=== PATIENT | female | born 1935 | race Caucasian/White ===

== ENCOUNTER 2022-03-10 10:14 | Emergency (ER) | payer MEDICARE, BC ==
[2022-03-10 11:13] LABS: ANION GAP 14.5 mEq/L (7-13); CHLORIDE,CL 99 mmol/L (98-107); SODIUM,NA 138 mmol/L (136-145)
[2022-03-10 11:17] LABS: ESTIMATED GFR 43 mL/min (>=60)
[2022-03-10 11:34] VITALS: BP 134/60; PULSE 76
[2022-03-10] MEDS: Sodium Chloride 0.9% 1,000 ML IV ONE (12:46)
[2022-03-10] MEDS: cefTRIAXone 2 GM in Sodium Chloride 0.9% 100 ML IV ONE (13:33)
== END 2022-03-10 14:39 | disposition home or self-care (01) ==
LOC: DL.ED 10:14
DX: N30.01 Acute cystitis with hematuria (principal); Z79.01 Long term (current) use of anticoagulants; Z79.899 Other long term (current) drug therapy
CPT/HCPCS: 36415; 80053; 81001; 83605; 84484; 85025; 85610; 87086; 87088; 87186; 93005; 96361; 96365; 99284; J0696; J7030

== ENCOUNTER 2022-03-11 08:50 | Inpatient (IN) | payer MEDICARE, BC ==
[2022-03-11] MEDS ORDERED: Sodium Chloride 0.9% 10 ML Syringe FLUSH PRN (09:25)
[2022-03-11] MEDS ORDERED: Sodium Chloride 0.9% 1,000 ML IV ONE (09:28)
[2022-03-11] MEDS ORDERED: Ondansetron 4 MG/2 ML SDV IV ONE (09:28)
[2022-03-11] MEDS ORDERED: cefTRIAXone 2 GM in Sodium Chloride 0.9% 100 ML IV ONE (09:28)
[2022-03-11] MEDS ORDERED: Fluconazole/Normal Saline 200 MG in Premix Bag 1 BAG IV ONE (09:29)
[2022-03-11] MEDS ORDERED: Potassium Chloride 20 MEQ in Premix Bag 1 BAG IV ONE (10:33)
[2022-03-11] MEDS ORDERED: Lidocaine 1% 10 ML MDV ONE (10:35)
[2022-03-11] MEDS ORDERED: Magnesium Sulfate/Water 2 GM in Premix Bag 1 BAG IV ONE ×2 (10:35→14:00)
[2022-03-11] MEDS ORDERED: oxyCODONE 5 MG Tab PO PRN (11:55)
[2022-03-11] MEDS ORDERED: Morphine 2 MG/ML SYRINGE IVPUSH PRN (11:55)
[2022-03-11] MEDS ORDERED: Acetaminophen 325 MG Tab PO PRN (11:55)
[2022-03-11] MEDS ORDERED: Ondansetron 4 MG/2 ML SDV IVPUSH PRN (11:55)
[2022-03-11] MEDS ORDERED: hydrALAZINE 20 MG/ML SDV IVPUSH PRN (12:08)
[2022-03-11] MEDS ORDERED: LORazepam 2 MG/ML SDV IVPUSH PRN (12:10)
[2022-03-11] MEDS ORDERED: Fluconazole 100 MG Tab PO SCH (12:15)
[2022-03-11 13:14] LABS: CORONAVIRUS COVID-19 NAA NEGATIVE (NEGATIVE); RESPIRATORY SYNCYTIAL VIR NAA NEGATIVE (NEGATIVE)
[2022-03-11] MEDS ORDERED: Heparin Sodium 5,000 Units/ML Vial SUBCUT SCH (14:00)
[2022-03-11] MEDS: NS with KCl 40mEq 1,000 ML IV SCH (14:22)
[2022-03-11] MEDS: atorvaSTATin 20 MG Tab PO SCH (21:07)
[2022-03-11] MEDS: Verapamil 240 MG Tab.ER PO SCH (21:07)
[2022-03-12] MEDS: NS with KCl 40mEq 1,000 ML IV SCH (00:21)
[2022-03-12 07:02] LABS: ANION GAP 13.1 mEq/L (7-13)
[2022-03-12 07:38] LABS: HEMOGLOBIN A1C 6.4 % (<5.7)
[2022-03-12] MEDS ORDERED: Glucagon,Human Recombinant 1 MG Vial IM PRN (08:23)
[2022-03-12] MEDS ORDERED: 50% Dextrose in Water 50 ML Syringe IVPUSH PRN (08:23)
[2022-03-12] MEDS ORDERED: Ciprofloxacin in D5W 400 MG in Premix Bag 1 BAG IV SCH ×2 (08:30)
[2022-03-12] MEDS ORDERED: Fluconazole 100 MG Tab PO SCH (09:00)
[2022-03-12] MEDS ORDERED: Nystatin Topical Powder 30 GM Bottle TOP SCH (09:00)
[2022-03-12] MEDS ORDERED: cefTRIAXone 2 GM in Sodium Chloride 0.9% 50 ML IV SCH (09:00)
[2022-03-12] MEDS ORDERED: Pantoprazole 40 MG Tab.CR PO SCH (09:00)
[2022-03-12] MEDS ORDERED: Melatonin 3 MG Tab PO PRN (09:43)
[2022-03-12] MEDS: Warfarin 2 MG Tab PO SCH ×2 (12:53→13:35)
[2022-03-12] MEDS: Insulin Lispro 100 Units/ML 3 ML Vial SUBCUT SCH ×3 (12:54→20:46)
[2022-03-12 19:26] VITALS: BP 111/47; PULSE 78
[2022-03-12] MEDS: Verapamil 240 MG Tab.ER PO SCH (20:47)
[2022-03-12] MEDS: atorvaSTATin 20 MG Tab PO SCH (20:48)
[2022-03-13] MEDS ORDERED: NETARSUDIL MESYLAT EYEBOTH SCH (21:00)
[2022-03-13] MEDS ORDERED: LATANOPROST EYEBOTH SCH (21:00)
[2022-03-14] MEDS ORDERED: Warfarin 2 MG Tab PO SCH (14:00)
[2022-03-14] MEDS ORDERED: Warfarin 5 MG Tab ONE (15:25)
[2022-03-14] MEDS ORDERED: Enoxaparin 100 MG/1 ML Syringe ONE (20:34)
[2022-03-15] MEDS ORDERED: Enoxaparin 100 MG/1 ML Syringe ONE (09:24)
[2022-03-15] MEDS ORDERED: Apixaban 5 MG Tab ONE (21:03)
[2022-03-15] MEDS ORDERED: Ciprofloxacin 500 MG Tab ONE (21:03)
[2022-03-16] MEDS ORDERED: Ciprofloxacin 500 MG Tab ONE (09:17)
[2022-03-16] MEDS ORDERED: Apixaban 5 MG Tab ONE (09:17)
[2022-03-17] MEDS ORDERED: Apixaban 5 MG Tab ONE (09:01)
[2022-03-17] MEDS ORDERED: Calcium Carbonate/Vitamin D3 1250 MG-5 MCG Tab ONE (09:03)
[2022-03-17] MEDS ORDERED: Ciprofloxacin 500 MG Tab ONE (09:15)
[2022-03-18] MEDS ORDERED: Apixaban 5 MG Tab ONE (08:36)
[2022-03-18] MEDS ORDERED: Ciprofloxacin 500 MG Tab ONE (08:39)
[2022-03-18] MEDS ORDERED: Calcium Carbonate/Vitamin D3 1250 MG-5 MCG Tab ONE (08:41)
[2022-03-18] MEDS ORDERED: Ergocalciferol (Vitamin D2) 1.25 MG Cap ONE (08:41)
[2022-03-19] MEDS ORDERED: Calcium Carbonate/Vitamin D3 1250 MG-5 MCG Tab ONE (08:57)
[2022-03-19] MEDS ORDERED: Furosemide 20 MG Tab ONE (08:57)
[2022-03-19] MEDS ORDERED: Apixaban 5 MG Tab ONE ×2 (14:02→22:17)
[2022-03-19] MEDS ORDERED: atorvaSTATin 20 MG Tab ONE (22:18)
[2022-03-19] MEDS ORDERED: Acetaminophen 325 MG Tab ONE (22:19)
[2022-03-20] MEDS ORDERED: Pantoprazole 40 MG Tab.CR ONE (05:58)
[2022-03-20] MEDS ORDERED: Calcium Carbonate/Vitamin D3 1250 MG-5 MCG Tab ONE (08:55)
[2022-03-20] MEDS ORDERED: Apixaban 5 MG Tab ONE (08:56)
[2022-03-21] MEDS ORDERED: Apixaban 5 MG Tab ONE ×2 (07:58→20:43)
[2022-03-21] MEDS ORDERED: Calcium Carbonate/Vitamin D3 1250 MG-5 MCG Tab ONE (07:59)
[2022-03-21] MEDS ORDERED: Pantoprazole 40 MG Tab.CR ONE (08:06)
[2022-03-21] MEDS ORDERED: atorvaSTATin 20 MG Tab ONE (20:43)
[2022-03-22] MEDS ORDERED: Ergocalciferol (Vitamin D2) 1.25 MG Cap ONE (08:38)
[2022-03-22] MEDS ORDERED: Pantoprazole 40 MG Tab.CR ONE (08:39)
[2022-03-22] MEDS ORDERED: Apixaban 5 MG Tab ONE (08:39)
[2022-03-22] MEDS ORDERED: Calcium Carbonate/Vitamin D3 1250 MG-5 MCG Tab ONE (08:39)
[2022-04-07 15:12] LABS: ANION GAP 10.2 mEq/L (7-13)
[2022-04-10 11:17] LABS: ANION GAP 10.5 mEq/L (7-13)
[2022-04-10 13:40] LABS: ANION GAP 12.2 mEq/L (7-13)
[2022-04-10 15:37] LABS: ANION GAP 9.4 mEq/L (7-13)
== END 2022-03-16 11:00 | disposition swing bed (61) | DRG 758 ==
LOC: DL.ED 08:50 → DL.MS 11:16 → DL.ZCENSUS 03-13 13:04
PROVIDERS: ADMIT Internal Medicine; ATTEND Internal Medicine
DX: B37.41 Candidal cystitis and urethritis (principal); N17.9 Acute kidney failure, unspecified; E83.42 Hypomagnesemia; E87.6 Hypokalemia; E86.0 Dehydration; N30.91 Cystitis, unspecified with hematuria; I48.91 Unspecified atrial fibrillation; E78.00 Pure hypercholesterolemia, unspecified; K21.9 Gastro-esophageal reflux disease without esophagitis; I12.9 Hypertensive chronic kidney disease with stage 1 through stage 4 chronic kidney disease, or unspecified chronic kidney disease; N18.9 Chronic kidney disease, unspecified; L89.152 Pressure ulcer of sacral region, stage 2; K29.70 Gastritis, unspecified, without bleeding; I95.1 Orthostatic hypotension; Z20.822 Contact with and (suspected) exposure to COVID-19; Z96.649 Presence of unspecified artificial hip joint; Z86.711 Personal history of pulmonary embolism; Z86.718 Personal history of other venous thrombosis and embolism; Z87.820 Personal history of traumatic brain injury; Z79.01 Long term (current) use of anticoagulants; Z79.899 Other long term (current) drug therapy
CPT/HCPCS: 0241U; 36415; 51702; 80048; 80053; 81001; 82150; 82306; 82533; 82947; 83036; 83605; 83690; 83735; 83880; 84100; 84443; 84484; 85025; 85610; 87040; 93005; 93010; 96365; 96375; 97110-GO; 97161-GP; 97165-GO; 97530-GO; 97530-GP; 99285; 99285-25; A9270-GY; J0696; J0744; J1450; J1644; J2405; J3475; J3480; J3490; J7030

== ENCOUNTER 2022-03-16 10:00 | Inpatient (IN) | payer MEDICARE, BC | END 2022-03-22 11:10 | disposition home health service (06) | DRG 690 | LOC: DL.ZCENSUS 10:00 | PROVIDERS: ADMIT Internal Medicine; ATTEND Internal Medicine | DX: N39.0 Urinary tract infection, site not specified (principal); M81.0 Age-related osteoporosis without current pathological fracture; I10 Essential (primary) hypertension; I95.9 Hypotension, unspecified; E83.42 Hypomagnesemia; E55.9 Vitamin D deficiency, unspecified; Z86.711 Personal history of pulmonary embolism; Z79.01 Long term (current) use of anticoagulants | CPT/HCPCS: 97110-GO; 97110-GP; 97116-GP; 97161-GP; 97165-GO; 97530-GO; 97535-GO ==

== ENCOUNTER 2023-02-04 13:06 | Emergency (ER) | payer MEDICARE, BC ==
[2023-02-04] MEDS ORDERED: cefTRIAXone 1 GM Vial IM ONE (13:28)
[2023-02-04 13:30] LABS: APPEARANCE,URINE SLIGHTLY CLOUDY (CLEAR); BILIRUBIN,URINE NEGATIVE (NEGATIVE); COLOR,URINE YELLOW (YELLOW); GLUCOSE,URINE NEGATIVE (NEGATIVE); KETONES,URINE NEGATIVE (NEGATIVE); LEUKOCYTE ESTERASE,URINE SMALL (NEGATIVE); NITRITE,URINE NEGATIVE (NEGATIVE); OCCULT BLOOD,URINE MODERATE (NEGATIVE); PH,URINE 7.5 (5.0-9.0); PROTEIN,URINE 30 (NEGATIVE); UROBILINOGEN,URINE 0.2 mg/dL (0.2-1.0)
[2023-02-04 13:34] VITALS: PULSE 74
[2023-02-04 13:37] LABS: BACTERIA,URINE MODERATE /HPF (0-FEW/HPF); EPITHELIAL CELLS,URINE MODERATE /HPF (NOT SEEN); RBC,URINE >100 /HPF (0-5); WBC,URINE 30-40 /HPF (0-5/HPF)
[2023-02-04 13:39] VITALS: BP 166/82
== END 2023-02-04 13:55 | disposition home or self-care (01) ==
LOC: DL.ED 13:06
DX: N39.0 Urinary tract infection, site not specified (principal); E78.00 Pure hypercholesterolemia, unspecified; I10 Essential (primary) hypertension; K21.9 Gastro-esophageal reflux disease without esophagitis; E66.9 Obesity, unspecified; Z68.33 Body mass index [BMI] 33.0-33.9, adult; Z86.16 Personal history of COVID-19; Z86.718 Personal history of other venous thrombosis and embolism; Z79.01 Long term (current) use of anticoagulants; Z79.899 Other long term (current) drug therapy
CPT/HCPCS: 81001; 87086; 96372; 99283; J0696

== ENCOUNTER 2024-08-12 06:12 | Day surgery (SDC) | payer BC, MEDICARE ==
[2024-08-12] MEDS ORDERED: Midazolam 1 MG/ML 2 ML SDV ONE (06:14)
[2024-08-12] MEDS ORDERED: fentaNYL 100 MCG/2 ML SDV ONE (06:14)
[2024-08-12] MEDS ORDERED: fentaNYL 100 MCG/2 ML SDV IV ONE (06:14)
[2024-08-12] MEDS ORDERED: Midazolam 1 MG/ML 2 ML SDV IV ONE (06:14)
[2024-08-12] MEDS: Dextrose 5%-0.45% NaCl 1,000 ML IV SCH (07:10)
[2024-08-12] MEDS: fentaNYL 100 MCG/2 ML SDV IV ONE (07:45)
[2024-08-12] MEDS: Midazolam 1 MG/ML 2 ML SDV IV ONE (07:46)
[2024-08-12 09:24] VITALS: BP 153/77; PULSE 64
== END 2024-08-12 09:44 | disposition home or self-care (01) ==
LOC: DL.ENDO 06:12
PROVIDERS: ATTEND Internal Medicine Gastroenterology
DX: D50.9 Iron deficiency anemia, unspecified (principal); K57.10 Diverticulosis of small intestine without perforation or abscess without bleeding; E11.9 Type 2 diabetes mellitus without complications; I10 Essential (primary) hypertension; E78.5 Hyperlipidemia, unspecified; E66.9 Obesity, unspecified; Z68.35 Body mass index [BMI] 35.0-35.9, adult
CPT/HCPCS: 88305; J2250; J3010

== ENCOUNTER 2024-08-14 06:52 | Day surgery (SDC) | payer BC, MEDICARE ==
[2024-08-14] MEDS ORDERED: Midazolam 1 MG/ML 2 ML SDV ONE (07:09)
[2024-08-14] MEDS ORDERED: Midazolam 1 MG/ML 2 ML SDV IV ONE (07:09)
[2024-08-14] MEDS ORDERED: fentaNYL 100 MCG/2 ML SDV ONE (07:09)
[2024-08-14] MEDS ORDERED: fentaNYL 100 MCG/2 ML SDV IV ONE (07:09)
[2024-08-14] MEDS: Dextrose 5%-0.45% NaCl 1,000 ML IV SCH (07:12)
[2024-08-14] MEDS: Midazolam 1 MG/ML 2 ML SDV IV ONE ×4 (07:32→07:44)
[2024-08-14] MEDS: fentaNYL 100 MCG/2 ML SDV IV ONE ×3 (07:32→07:40)
[2024-08-14 10:36] VITALS: BP 165/71; PULSE 75
== END 2024-08-14 09:20 | disposition home or self-care (01) ==
LOC: DL.ENDO 06:52
PROVIDERS: ATTEND Internal Medicine Gastroenterology
DX: K57.30 Diverticulosis of large intestine without perforation or abscess without bleeding (principal); D50.9 Iron deficiency anemia, unspecified; E11.9 Type 2 diabetes mellitus without complications; I10 Essential (primary) hypertension; E66.9 Obesity, unspecified; Z68.35 Body mass index [BMI] 35.0-35.9, adult
CPT/HCPCS: J2250; J3010; J7799